=== PATIENT | female | born 1940 | race Caucasian/White ===

== ENCOUNTER → 2017-10-19 | Day surgery (SDC) | payer MEDICARE ==
[~2017-10-19] MED LIST: BUPIVACAINE/EPINEPHRINE 0.25% PF 30 ML VIAL ONE; KETOROLAC TROMETHAMINE 30 MG/ML (IVP) VIAL IV PUSH ONE; LACTATED RINGER'S 1000 ML INJ 1,000 ML ONE; ONDANSETRON HCL 4 MG/2 ML VIAL ONE; PROPOFOL 200 MG/20 ML AMP IV ONE; SODIUM CHLOR 0.9% 250 ML INJ 250 ML IV ONE; VANCOMYCIN 500 MG VIAL ONE
--- NOTE | 2017-10-19 11:58 | TN ---
cc: DOMENIC HORTON MD DATE OF SURGERY 10/19/2017 ATTENDING PHYSICIAN/SURGEON Domenic Horton MD PREOPERATIVE DIAGNOSIS Left knee torn medial meniscus. POSTOPERATIVE DIAGNOSIS Left knee torn medial meniscus. PROCEDURE Left knee arthroscopy with partial medial meniscectomy. PROCEDURE IN DETAIL Informed consent was obtained. The patient was taken to the operating room, placed in the supine position on the operating room table. She was administered general anesthesia by Dr. Yanes of the Anesthesia Department. At that time the left thigh had a tourniquet applied, was prepped with Betadine soap, followed by Betadine paint. Draping commenced with sterile down sheet, sterile knee drap, sterile stockinette was applied over the foot and calf. This was wrapped with a Coban. Extremity drape was applied. A time-out was held and confirmed. The table was then elevated. The leg was elevated and tourniquet was inflated to 300 mmHg. The leg was allowed to flex over the side of the operating room table. An 18-gauge spinal needle was placed in the region of the lateral infrapatellar portal. This region was infiltrated with 4 cc of 0.25% Marcaine with epinephrine. Infiltration was also performed in the medial infrapatellar portal and transpatellar tendon portal regions. A small incision was made with an 11 blade in the region of the transpatellar tendon portal. In-flow cannula was placed. A second incision was placed in the region of the lateral infrapatellar portal. Arthroscopic cannula was placed. The diagnostic arthroscopy commenced. The medial compartment was examined. It appeared that there was a tear in the junction between zones 1 and zone 2 of the medial meniscus. A medial portal was established. This area was probed. This was found to be a complex tear with radial and horizontal cleavage components. Utilizing up-biting basket forceps and a [place] meniscal shaver, this meniscus was debrided to a stable rim. The anterior portions of the meniscus appeared otherwise intact. 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 At that time the scope was maneuvered over the intercondylar notch to the edge of the lateral compartment. The leg was placed in a figure-four position. The lateral meniscus looked good. The lateral femoral condyle, lateral tibial plateau and popliteus tendon all looked good. The leg was again flexed over the side of the operating table. The scope was place in the intercondylar notch. The anterior and posterior cruciate ligaments were inact. The scope was then placed in suprapatellar pouch. This appeared normal. The undersurface of the patella demonstrated some very mild chondromalacia changes as did the trochlear groove. At that time the knee was thoroughly irrigated and suctioned. All cannulas were removed. Each portal was closed with a single 4-0 nylon interrupted stitch. Band-Aids, 4x4s, Sof-Rol and Chun wrap were applied to the patient's knee. The patient tolerated the procedure well and was then taken to the recovery room in stable condition. At the completion of the procedure, sponge counts, instrument counts and needle counts were correct. Estimated blood loss was less than 10 cc. Total tourniquet time was 38 minutes. A total of 6000 cc of sterile saline was utilized for irrigation during this operative procedure. MD HONG Cuevas/JASE /11:42 AM /11:49 AM
== END | disposition home or self-care (01) ==
LOC: ESDC 09:23
PROVIDERS: ATTEND Orthopaedic Surgery
DX: S83.232A Complex tear of medial meniscus, current injury, left knee, initial encounter (principal); Z01.810 Encounter for preprocedural cardiovascular examination
CPT/HCPCS: 01400; 29881; 93005; J1885; J2405; J3010; J3370; J7050; J7120